=== PATIENT | male | born 1940 | race Caucasian/White ===

== ENCOUNTER 2020-05-22 12:42 | Outpatient (CLI) | payer MEDICARE, MEDICAID ==
[~2020-05-22] VITALS: Ht 167.6 cm; Wt 73.0 kg
[2020-05-22 13:28] VITALS: BP 119/75
[2020-05-22] MEDS ORDERED: AMLODIPINE BESYL5 MG ORAL (13:30)
[2020-05-22] MEDS ORDERED: PLAVIX75 MG ORAL (13:30)
[2020-05-22] MEDS ORDERED: LISINOPRIL20 MG ORAL (13:30)
[2020-05-22] MEDS ORDERED: ASPIRIN EC81 MG ORAL (13:30)
--- NOTE | 2020-05-22 19:00 | Consultation ---
DATE OF CONSULTATION: 05/22/2020 GASTROLOGY CONSULTATION CHIEF COMPLAINT: Kind of cough. HISTORY OF PRESENT ILLNESS: This is a very pleasant 79-year-old [place] male who has a history of multiple medical problems, which I will dictate in a second. The main reason he is here is that he has been having difficulty with having sweet drinks or sweet stuff. When he has something sweet, he will start coughing. According to him, he does not have the same problem with the regular foods including bread, rice. He has been seen by ENT and was given some PPI without any improvement. Also, ENT has told him to use some nose drops and also to wash his throat with Epsom salt, which has given minimum improvement, so the patient is here concerning about why he is having cough when he has something sweet. PAST MEDICAL HISTORY: 1. Hypertension. 2. Coronary artery disease. 3. Arthritis. 4. S1 disc problems. PAST SURGICAL HISTORY: 1. Right knee surgery x2. 2. Back surgery. 3. Angioplasty. MEDICATIONS: See medication reconciliation list. FAMILY HISTORY: Noncontributory. SOCIAL HISTORY: The patient drinks alcohol socially. He used to smoke, but quit 40 years ago. Denies any IV drug abuse. ALLERGIES: No known allergies. REVIEW OF SYSTEMS: Positive as above. PHYSICAL EXAMINATION: VITAL SIGNS: Temperature 97.5, blood pressure is 119/75, pulse 76, respirations 20. HEENT: Normocephalic and atraumatic. Sclerae are anicteric. NECK: Supple. No evidence of obvious lymphadenopathy. CARDIOVASCULAR: Regular rhythm. Plus S1, S2. LUNGS: Clear to auscultation bilaterally. ABDOMEN: Positive bowel sounds. Soft and nontender. No rebound. No guarding. No peritoneal sign. EXTREMITIES: No cyanosis. No clubbing. No edema. ASSESSMENT AND PLAN: This is an 79-year-old male with a very unusual complained of having cough after having something sweet. At this time, I am not exactly sure why he is having these symptoms, but we offered him that some of it might be related to an allergy since he is having chronic nasal drainage. The patient is taking on and off Benadryl at night half a tablet. We are recommending to take a full tablet of 25 mg at bedtime every day for 2 weeks. Continue to do Epsom salt washes of his back of his throat. Continue taking his PPI, and if he is not better, we will consider doing endoscopy for visualization of the back of the throat. I want to thank Dr. Noel Rowell for this kind referral. Edgardo Santacruz M.D. DR: ERIC JOB#: [id number] CC: Noel Rowell M.D.; Fax#: [phone]
== END 2020-05-22 14:42 | disposition home or self-care (01) ==
LOC: PAN 12:42
DX: R05 Cough (principal); Z87.891 Personal history of nicotine dependence; I11.9 Hypertensive heart disease without heart failure; I25.10 Atherosclerotic heart disease of native coronary artery without angina pectoris; M19.90 Unspecified osteoarthritis, unspecified site
CPT/HCPCS: G0463